=== PATIENT | female | born 1950 | race Two or more races ===

== ENCOUNTER 2020-09-15 09:17 | Emergency (ER) | payer OTHER ==
[~2020-09-15] VITALS: Ht 157.5 cm; Wt 64.9 kg
[~2020-09-15 09:17] MED LIST: NEURONTIN300 MG PO
[2020-09-15] MEDS ORDERED: WAL-ITIN10 MG (09:40)
[2020-09-15] MEDS ORDERED: MONTELUKAST SODI4 M1 (09:40)
[2020-09-15] MEDS ORDERED: RESPTHERAMACH (13:53)
[2020-09-15] MEDS ORDERED: MUCINEX DM ER1 EAC1 PO (13:53)
[2020-09-15] MEDS ORDERED: TESSALON PERLE100 M1 PO (13:53)
[2020-09-15] MEDS ORDERED: ZITHROMAX500 MG PO (13:53)
[2020-09-15] MEDS ORDERED: BUDESONIDE0.5 MG/2 M IH (13:53)
== END 2020-09-15 14:02 | disposition home or self-care (01) ==
LOC: ER 09:17
DX: J40 Bronchitis, not specified as acute or chronic (principal); J06.9 Acute upper respiratory infection, unspecified; R09.81 Nasal congestion; Z20.822 Contact with and (suspected) exposure to COVID-19

== ENCOUNTER 2024-03-17 10:39 | Emergency (ER) | payer OTHER ==
[~2024-03-17] VITALS: Ht 157.5 cm; Wt 63.5 kg
[~2024-03-17 10:39] MED LIST changes: +BUDESONIDE0.5 MG/2 M IH; +MONTELUKAST SODI4 M1; +MUCINEX DM ER1 EAC1 PO; +RESPTHERAMACH; +TESSALON PERLE100 M1 PO; +WAL-ITIN10 MG; +ZITHROMAX500 MG PO
[2024-03-17] MEDS ORDERED: DEXAMETHASONE SODIUM PHOSPHATE 4 MG/ML VIAL IM STA (11:31)
[2024-03-17] MEDS ORDERED: KETOROLAC TROMETHAMINE 60 MG VIAL IM STA (12:47)
== END 2024-03-17 14:06 | disposition home or self-care (01) ==
LOC: ER 10:39
DX: J32.9 Chronic sinusitis, unspecified (principal)
CPT/HCPCS: 70220; 72100; 96372; 99283; J1885